=== PATIENT | female | born 1950 | race Hispanic/Latino ===

== ENCOUNTER 2017-06-02 15:12 | Emergency (ER) | payer MEDICARE, OTHER ==
[2017-06-02 15:13] VITALS: BMI 39.1
[2017-06-02 15:22] VITALS: TEMP 98
--- NOTE | 2017-06-02 15:42 | ED PDOC ---
Arrival/HPI - General Chief Complaint: Back Pain Time Seen by Provider: 06/02/17 15:36 Historian: Patient - History of Present Illness Narrative History of Present Illness (Text): The patient is a 67yo female, presents to the emergency department for evaluation of worsening left sided neck pain radiating to her left upper extremity, for the past 6 days. Patient describes the pain as "shooting electricity" and states it is worse with movement but better when she positions her neck differently. She reports she has had surgery in her shoulder in the past and the neck pain is making her shoulder pain worse. She states the pain is non-exertional and denies any chest pain or shortness of breath. She offers no additional medical complaints. Time/Duration: < week (6 days) Symptom Onset: Gradual Past Medical History - Provider Review Nursing Documentation Reviewed: Yes - Travel History Have you recently traveled outside [place] w/in the past 3 mons?: No - Infectious Disease Hx of Infectious Diseases: None - Cardiac Hx Cardiac Disorders: Yes Hx Hypertension: Yes Other/Comment: x1 stent - Pulmonary Hx Respiratory Disorders: No - Neurological Hx Neurological Disorder: No - HEENT Hx HEENT Disorder: No - Renal Hx Renal Disorder: No - Endocrine/Metabolic Hx Endocrine Disorders: No - Hematological/Oncological Hx Blood Disorders: No - Integumentary Hx Dermatological Disorder: No - Musculoskeletal/Rheumatological Hx Falls: No - Gastrointestinal Hx Gastrointestinal Disorders: No - Genitourinary/Gynecological Hx Genitourinary Disorders: No - Psychiatric Hx Psychophysiologic Disorder: No Hx Substance Use: No - Surgical History Hx Cardiac Catheterization: Yes Hx Cholecystectomy: Yes Hx Coronary Stent: Yes (x1) Other/Comment: right knee surgery and ankle surgery. - Anesthesia Hx Anesthesia: Yes Hx Anesthesia Reactions: No Hx Malignant Hyperthermia: No Family/Social History - Physician Review Nursing Documentation Reviewed: Yes Family/Social History: No Known Family HX Smoking Status: Light Smoker < 10 Cigarettes Daily Hx Alcohol Use: No Hx Substance Use: No Allergies/Home Meds Allergies/Adverse Reactions: Allergies No Known Allergies Allergy (Verified 06/02/17 15:18) Review of Systems - Physician Review All systems were reviewed & negative as marked: Yes Physical Exam - Physical Exam Narrative Physical Exam (Text): - Review of Systems Constitutional: Normal. absent: Fatigue, Weight Change, Fevers Eyes: Normal ENT: denies sore throat, denies tristhmus Respiratory: Normal. absent: SOB, Cough, Sputum Cardiovascular: absent: Chest Pain, Palpitations, Syncope Gastrointestinal: Normal. absent: Abdominal Pain, Diarrhea, Nausea, Vomiting Musculoskeletal: Left sided neck pain, radiating to left upper extremity. Left shoulder pain, worse due to left neck pain. Skin: no rashes, no erythema Neurological: absent: Focal Weakness Psychiatric: No suicidal or homicidal ideations Physical exam Patient appears age appropriate in no distress, speaking full sentences without difficulty - Systems Exam Head: Present: Atraumatic, Normocephalic Pupils: Present: PERRL Extroacular Muscles: Present: EOMI Conjunctiva: Present: Normal Mouth: Present: Moist Mucous Membranes Neck: Neck discomfort, reproducible with palpation. Paraspinal neck tenderness. NO midline tenderness. Respiratory/Chest: Present: Clear to Auscultation, Good Air Exchange. No: Respiratory Distress, Accessory Muscle Use, Tachypneic Cardiovascular: Present: Regular Rate and Rhythm, Normal S1, S2, Peripheal Pulses Present. No: Murmurs Abdomen: Present: Normal Bowel Sounds. No: Tenderness, Distention, Peritoneal Signs, Rebound, Guarding Back: Present: Normal Inspection. No: Midline Tenderness, Paraspinal Tenderness Upper Extremity: Present: Normal Inspection. Normal pulses. Distal neurovascular sensations intact. No: Cyanosis, Edema Lower Extremity: Present: Normal Inspection. Normal pulses. Distal neurovascular sensations intact. No: Edema Neurological: Present: GCS=15, Speech Normal, cranial nerves II through XII fully intact with no cerebellar abnormality, neurosensory fully intact. No focal neurological deficits. Skin: Present: Warm, Dry, Normal Color. No: Rashes Psychiatric: Present: Alert, Oriented x 3, Normal Insight, Normal Concentration Vital Signs Temp Pulse Resp BP Pulse Ox 06/02/17 15:21 98.0 F 98 H 20 193/145 H 94 L Medical Decision Making ED Course and Treatment: Impression: 67y/o female with complaints of left sided neck pain, left shoulder pain. Pain is positional and reproducible with neck movement and palpation. b/l upper extremities with no peresthesias and no focal neurological deficits, distal neurovasc. fully intact. Left shoulder with full active and passive ROM, 5/5 strength. Based on hx and PE, does not appear to be of cardiac etiology. Differential Diagnosis included but are not limited to: Arthritis, cervical radiculopathy Plan: -- Toradol 30 mg IVP -- CT C-Spine -- Labs -- Reassess and disposition Prior Visits: Notes and results from previous visits were reviewed. On 11/20/2015 patient came in complaining of chest pain and was admitted for further evaluation. Progress Notes: 06/02/17 16:55 CT C-Spine IMPRESSION: No acute fracture or traumatic anterior listhesis. Straightening of the cervical spine may be positional or related to muscle spasm. Multilevel degenerative disc disease, worse at C4-5 with severe left neural foraminal stenosis. No spinal canal stenosis. On reeval, pt states she feels much better in no distress BP elevated pt has no symptoms and has a hx of hypertension states she rarely follows up with her PMD states she feels comfortable being dc'd home with outpatient f/u Pt states she understands to return to the ER right away for new or worsening symptoms or for inability to f/u with PMD or specialist as instructed. Patient states that she fully agrees with and understands discharge instructions. States that she agrees with the plan and disposition. Verbalized and repeated discharge instructions and plan. I have given the patient opportunity to ask any additional questions. - Lab Interpretations Lab Results: 06/02/17 15:35 06/02/17 15:35 Lab Results 06/02/17 15:35: Sodium 144, Potassium 4.1, Chloride 106, Carbon Dioxide 25, Anion Gap 17, BUN 17, Creatinine 1.1, Est GFR ( Amer) > 60, Est GFR (Non- Af Amer) 50, Random Glucose 103, Calcium 9.4, Total Bilirubin 0.5, AST 22, ALT 21, Alkaline Phosphatase 80, Lactate Dehydrogenase 415, Total Creatine Kinase 72 , Troponin I < 0.01 D, Total Protein 7.5, Albumin 4.3, Globulin 3.2, Albumin/ Globulin Ratio 1.3 06/02/17 15:35: PT 10.4, INR 0.96, APTT 25.3 06/02/17 15:35: WBC 8.5, RBC 4.97, Hgb 15.4, Hct 45.9, MCV 92.4, MCH 31.0, MCHC 33.6, RDW 15.4 H, Plt Count 194, MPV 10.9, Gran % 64.8, Lymph % (Auto) 22.1, [place] % (Auto) 8.9 H, Eos % (Auto) 3.6, Baso % (Auto) 0.6, Gran # 5.53, Lymph # 1.9, [place] # 0.8 H, Eos # 0.3, Baso # 0.05 - RAD Interpretation Radiology Orders: 06/02/17 15:36 CERVICAL SPINE W/O CONTRAST [CT] Stat - Medication Orders Current Medication Orders: Discontinued Medications Ketorolac Tromethamine (Toradol) 30 mg IVP STAT STA Stop: 06/02/17 15:37 Last Admin: 06/02/17 15:51 Dose: 30 mg MAR Pain Assessment Document 06/02/17 15:51 HI (Rec: 06/02/17 15:52 [id number]) Pain Reassessment Is this a pain reassessment? No Sleep Is patient sleeping during reassessment? No Presence of Pain Presence of Pain Yes Pain Scale Used Pain Scale Used Numeric Location Left, Right or Bilateral Left Pain Location Body Site Neck Shoulder Description Description Constant Intensity of Pain at present 8 Pain Behavior Moaning Facial Grimacing IVP Administration Document 06/02/17 15:51 HI (Rec: 06/02/17 15:52 [id number]) Charges for Administration # of IVP Administrations 1 - Scribe Statement The provider has reviewed the documentation as recorded by the Saman Ortiz Provider Attestation: All medical record entries made by the Saman were at my direction and personally dictated by me. I have reviewed the chart and agree that the record accurately reflects my personal performance of the history, physical exam, medical decision making, and the department course for this patient. I have also personally directed, reviewed, and agree with the discharge instructions and disposition. Disposition/Present on Arrival - Present on Arrival Any Indicators Present on Arrival: No History of DVT/PE: No History of Uncontrolled Diabetes: No Urinary Catheter: No History of Decub. Ulcer: No History Surgical Site Infection Following: None - Disposition Have Diagnosis and Disposition been Completed?: Yes Diagnosis: Neck pain Disposition: HOME/ ROUTINE Disposition Time: 17:01 Patient Plan: Discharge Condition: GOOD Discharge Instructions (ExitCare): Cervical Spinal Stenosis (ED), Cervical Radiculopathy (ED) Additional Instructions: PLEASE RETURN TO THE EMERGENCY DEPARTMENT FOR NEW OR WORSENING SYMPTOMS. RETURN RIGHT AWAY IF YOU CANNOT FOLLOW UP WITH YOUR PRIMARY CARE DOCTOR, CLINIC, OR SPECIALIST IN 1-2 DAYS. Prescriptions: Cyclobenzaprine [Flexeril] 5 mg PO BID #10 tab Ibuprofen [Motrin] 600 mg PO Q8 PRN #12 tab PRN Reason: Pain, Moderate (4-7) Referrals: Kayley HORTON,Jose Shaikh MD [Primary Care Provider] - Follow up with primary Forms: Fio (Arabic)
[2017-06-02 16:06] LABS: BASO # 0.05 K/mm3 (0.0-2.0); BASO % 0.6 % (0.0-3.0); EOS # 0.3 (0.0-0.7); EOS % 3.6 % (1.5-5.0); GRAN # 5.53 (1.4-6.5); GRAN % 64.8 % (50.0-68.0); HEMATOCRIT 45.9 % (36.0-48.0); LYMPH # 1.9 (1.2-3.4); LYMPH % 22.1 % (22.0-35.0); MEAN CELL VOLUME 92.4 fl (80.0-105.0); MEAN CORPUSCULAR HGB CONC 33.6 g/dl (31.0-37.0); MEAN PLATELET VOLUME 10.9 fl (7.0-11.0); MONO # 0.8 (0.1-0.6); MONO % 8.9 % (1.0-6.0); RED CELL DISTRIBUTION WIDTH 15.4 % (11.5-14.5); WHITE BLOOD COUNT 8.5 10^3/ul (4.5-11.0)
[2017-06-02 16:14] LABS: ALB/GLOB RATIO 1.3 (1.1-1.8); ALKALINE PHOSPHATASE 80 U/L (38-126); ALT/SGPT 21 U/L (7-56); AST/SGOT 22 U/L (14-36); BILIRUBIN,TOTAL 0.5 mg/dL (0.2-1.3); BLOOD UREA NITROGEN 17 mg/dL (7-21); CALCIUM 9.4 mg/dL (8.4-10.5); CARBON DIOXIDE 25 mmol/L (21-33); CHLORIDE 106 mmol/L (98-107); GFR AFRICAN-AMERICAN > 60; GLUCOSE,RANDOM 103 mg/dL (70-110); POTASSIUM 4.1 mmol/L (3.6-5.0); SODIUM 144 mmol/L (132-148); TOTAL PROTEIN 7.5 g/dL (5.8-8.3)
[2017-06-02 16:19] LABS: INR 0.96 (0.93-1.08); PARTIAL THROMBOPLASTIN TIME 25.3 Seconds (23.7-30.8)
[2017-06-02 16:25] LABS: TROPONIN I < 0.01 ng/mL
--- NOTE | 2017-06-02 16:48 | CT ---
PROCEDURE: CT Cervical Spine without contrast HISTORY: Neck pain COMPARISON: None available. TECHNIQUE: Axial computed tomography images were obtained of the cervical spine without the use of intravenous contrast. Coronal and sagittal reformatted images were created and reviewed. Radiation dose: Total exam DLP = 595.02 mGy-cm. This CT exam was performed using one or more of the following dose reduction techniques: Automated exposure control, adjustment of the mA and/or kV according to patient size, and/or use of iterative reconstruction technique. FINDINGS: VERTEBRAE: There is mild degenerative anterior listhesis of C4 on C5. There is straightening of the cervical spine with loss of cervical lordosis. There is diffuse bone demineralization. There is no acute fracture or traumatic anterior listhesis. The craniocervical junction is normal. 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 DISCS/SPINAL CANAL/NEURAL FORAMINA: Evaluation of the discs and spinal canal is limited on noncontrast CT examination There is multilevel degenerative disc disease due to combination of disc osteophyte complexes, uncovertebral joint hypertrophy and multilevel facet arthropathy, worse at C4-5 with severe left neural foraminal stenosis. No spinal canal stenosis. PARASPINAL SOFT TISSUES: There is no prevertebral soft tissue thickening. The paraspinous soft tissues are normal. OTHER FINDINGS: None. IMPRESSION: No acute fracture or traumatic anterior listhesis. Straightening of the cervical spine may be positional or related to muscle spasm. Multilevel degenerative disc disease, worse at C4-5 with severe left neural foraminal stenosis. No spinal canal stenosis.
[2017-06-02 17:08] VITALS: BP 160/105; PULSE 74; RESP 16; O2SAT 95
--- NOTE | 2017-06-03 15:52 | CARD ---
APPROVED REPORT EKG Measurement Heart [id number] <Conclusion> Sinus rhythm with occasional premature ventricular complexes Nonspecific ST and T wave abnormality Prolonged QT Abnormal ECG
== END 2017-06-02 17:15 | disposition home or self-care (01) ==
LOC: ED 15:12
DX: M54.2 Cervicalgia (principal); I10 Essential (primary) hypertension; F17.210 Nicotine dependence, cigarettes, uncomplicated
CPT/HCPCS: 72125; 80053; 82550; 83615; 84484; 85025; 85610; 85730; 93005; 96374; 99283; J1885